=== PATIENT | female | born 1980 | race Hispanic/Latino ===

== ENCOUNTER 2018-07-01 14:29 | Emergency (ER) | payer OTHER ==
[2018-07-01] MEDS ORDERED: KETOROLAC TROMETHAMINE 60 MG/2 ML VIAL ONE (15:40)
[2018-07-01 16:18] LABS: APPEARANCE,URINE Cloudy (CLEAR); BILIRUBIN,URINE Negative (NEGATIVE); COLOR,URINE Yellow (YELLOW); GLUCOSE, URINE (UA) Negative (NEGATIVE); KETONES,URINE Negative (NEGATIVE); LEUKOCYTE ESTERASE ,URINE Small (NEGATIVE); NITRATE,URINE Negative (NEGATIVE); OCCULT BLOOD,URINE Negative (NEGATIVE); PH,URINE 5.5 (5.0-8.0); PROTEIN,URINE Negative (NEGATIVE); UROBILINOGEN,URINE 0.2 mg/dL (0.2-1.0)
[2018-07-01 16:19] LABS: HCG,QUAL RESULT NEGATIVE (NEGATIVE)
[2018-07-01 16:43] LABS: BACTERIA,URINE Few /HPF (None Seen); RBC,URINE None Seen /HPF (0-1); SQUAMOUS EPITHELIAL CELL,UR 30-50 /HPF (0-2); WBC,URINE 0-1 /HPF (0-1)
== END 2018-07-01 17:23 | disposition home or self-care (01) ==
LOC: EDH 14:29
DX: M54.5 Low back pain (principal); M25.551 Pain in right hip
CPT/HCPCS: 72100; 81001; 81025; 96372; 99284; J1885

== ENCOUNTER 2018-07-26 15:52 | Emergency (ER) | payer OTHER | END 2018-07-26 18:35 | disposition short-term general hospital (02) | LOC: EDH 15:52 | DX: T74.21XA Adult sexual abuse, confirmed, initial encounter (principal); S21.051A Open bite of right breast, initial encounter ==